=== PATIENT | female | born 1965 | race American Indian/Alaskan Native ===

== ENCOUNTER 2017-09-15 14:02 | Outpatient (CLI) | payer BC ==
--- NOTE | 2017-09-16 13:07 | Magnetic Resonance Report ---
BILATERAL BREAST MRI WITHOUT AND WITH CONTRAST: 09/15/17 14:02:00 CLINICAL: Diffuse cystic mastopathy of the right breast and mastodynia COMPARISON:02/28/17 bilateral mammogram. TECHNIQUE: Axial 1.0-mm T1 without, axial high resolution 2.0-mm T2 and axial 1.0-mm dynamic Vibrant high-resolution postcontrast T1 fat saturation sequences on a 1.5 Gianna magnet. The examination was performed with an 8 channel dedicated [place] breast coil. Post processing with CAD and subtraction was performed on an [employer] workstation. 18.0 cc of Multihance was injected without incident for the contrast portion of the exam. Consent was obtained prior to the administration of the contrast. FINDINGS: Right: Moderate background parenchymal enhancement. No mass or suspicious enhancement. Minimal cysts. No suspicious lymph nodes. Left: Moderate background parenchyma enhancement. No mass or suspicious enhancement. Minimal cysts. No suspicious lymph nodes. IMPRESSION: Normal study. Recommend routine mammographic screening. BI-RADS 1 - - Negative
== END 2017-09-15 14:03 | disposition home or self-care (01) ==
LOC: SPVIMAG 14:02
PROVIDERS: ATTEND Surgery
DX: N60.11 Diffuse cystic mastopathy of right breast (principal); N60.12 Diffuse cystic mastopathy of left breast; N64.4 Mastodynia
CPT/HCPCS: A9577; C8908; 77059

== ENCOUNTER 2018-10-13 09:29 | Outpatient (CLI) | payer OTHER ==
[2018-10-13 10:40] LABS: Chol/HDL Ratio 1.67 %
[2018-10-16 12:10] LABS: Vitamin D, 25-OH, D2 <4 ng/mL
== END 2018-10-13 09:30 | disposition home or self-care (01) ==
LOC: LAB 09:29
PROVIDERS: ATTEND Internal Medicine
DX: Z13.220 Encounter for screening for lipoid disorders (principal); Z13.21 Encounter for screening for nutritional disorder; R73.03 Prediabetes; R79.89 Other specified abnormal findings of blood chemistry
CPT/HCPCS: 36415; 80061; 82306; 82607; 83036

== ENCOUNTER 2020-03-20 08:32 | Outpatient (CLI) | payer BC ==
--- NOTE | 2020-03-20 09:20 | Mammography Report ---
DIGITAL SCREENING MAMMOGRAM WITH CAD, 03/20/2020 CLINICAL INFORMATION / INDICATION: Routine screening mammography. SCREENING MAMMO TECHNIQUE: Digital bilateral 2D mammography was obtained in the craniocaudal and mediolateral obliqu e projections. This examination was interpreted with the benefit of Computer-Aided Detection analysis . COMPARISON: Prior mammograms 03/15/2019 and 03/09/2018 FINDINGS: Breast Density: The breasts are heterogeneously dense, which may obscure small masses. No dominant mass, suspicious calcifications, or architectural distortion in either breast. There are stable benign-appearing calcifications seen in the right breast. There has been no signific ant change compared with the prior examinations. IMPRESSION: No mammographic evidence of malignancy. Follow up recommendation: Routine yearly BI-RADS Category 2: Benign. A "normal" or negative report should not discourage follow up or biopsy of a clinically significant f inding. A written summary of these findings will be mailed to the patient. The patient will be entered into a mammography reporting system which will generate a reminder letter for the patient's next appointmen t at the appropriate interval. The [employer] recommends yearly mammograms starting at age 40 and continuing as l melinda as a woman is in good health. Breast MRI is recommended for women with an approximate 20-25% or greater lifetime risk of breast cancer, including women with a strong family history of breast or ova lico cancer or who have been treated for Hodgkin's disease. Signer Name: Mini Rome MD Signed: 03/20/2020 9:15 AM Workstation Name: [employer]
== END 2020-03-20 08:33 | disposition home or self-care (01) ==
LOC: SPVWC 08:32
PROVIDERS: ATTEND Surgery
DX: Z12.31 Encounter for screening mammogram for malignant neoplasm of breast (principal)
CPT/HCPCS: 77067